=== PATIENT | male | born 1945 | race Caucasian/White ===

== ENCOUNTER → 2017-03-23 | Day surgery (SDC) | payer BC ==
[2017-03-19 08:37] VITALS: Ht 162.6 cm; Wt 61.4 kg
[~2017-03-23] VITALS: Ht 162.6 cm; Wt 61.4 kg
[~2017-03-23] MED LIST: EpHEDrine SULFATE 50MG/5ML SYR ONE; KRIL1000 PO; LIDOCAINE HCL 2% 2 ML VIAL (20MG/ML) ONE; MULT-506 PO; PROPOFOL IV EMULSION 10 MG/ML 20 ML VIAL IV ONE; SODIUM CHLORIDE 0.9% 500ML 500 ML IV ONE; vitamin b PO
[2017-03-23 08:36] VITALS: TEMP 36.4
--- NOTE | 2017-03-23 09:34 | Endo History and Physical ---
History & Physical Date of Service: Mar 23, 2017. Chief Complaint: Hx polyps Referring Physician: Sky Quinones History of Present Illness History of colitis, quiescent; history of multiple polyps Past Surgical History Hx Cardiac Surgery: No Hx Internal Defibrillator: No Hx Pacemaker: No Hx Abdominal Surgery: Yes (OSCAR) Hx of Implantable Prosthesis: No Hx Post-Op Nausea and Vomiting: No Hx Cancer Surgery: Yes (SKIN EXCISION, PROSTATECTOMY) Hx Thoracic Surgery: No Hx Orthopedic: No Hx Urinary Tract Surgery: Yes (VASECTOMY) Family History Colon CA Social History Smoking Status: Never Smoker Hx Substance Use: No Hx Alcohol Use: Yes (RARELY) Allergies Coded Allergies: POLLEN (Verified Allergy, Intermediate, HAYFEVER, 03/19/17) Penicillins (Verified Allergy, Intermediate, rash, 03/19/17) Sulfa Antibiotics (Verified Allergy, Intermediate, rash, 03/19/17) Current Medications Reported Home Medications Medications Dose Route/Sig Max Daily Dose Days Date Category Krill Oil 1 Cap Cap 1 Cap PO QAM 03/19/17 Reported [vitamin b] 1 Tab PO QAM 03/19/17 Reported Multivitamin (Multivitamins) Tab 1 Tab PO QAM 01/22/16 Reported Vital Signs Weight (Kilograms): 61.36 Height (Feet): 5 Height (Inches): 4 Date Time Temp Pulse Resp B/P (MAP) Pulse Ox O2 Delivery O2 Flow Rate FiO2 03/23/17 08:36 36.4 60 18 137/81 (99) 97 Room Air Physical Exam General Appearance: WD/WN, no apparent distress Respiratory/Chest: Auscultation: breath sounds normal Cardiovascular: Heart Auscultation: RRR, no murmurs Abdomen: Inspection & Palpation: soft, no tenderness, guarding & rebound Assessment and Plan Colonoscopy today.
--- NOTE | 2017-03-23 10:14 | Discharge Instructions ---
Endoscopy Patient Instructions Date / Procedure(s) Performed Mar 23, 2017. Colonoscopy Allergy Information Coded Allergies: POLLEN (Verified Allergy, Intermediate, HAYFEVER, 03/19/17) Penicillins (Verified Allergy, Intermediate, rash, 03/19/17) Sulfa Antibiotics (Verified Allergy, Intermediate, rash, 03/19/17) Discharge Date / Findings Mar 23, 2017. Mild inflammatory changes rectum to sigmoid, otherwise normal. Surveillance biopsies obtained. Medication Instructions Restart Stopped Medication(s): Restart all medications today Provider Instructions Activity Restrictions - No exercising or heavy lifting for 24 hours. - Do not drink alcohol the day of the procedure. - Do not drive a car or operate machinery until the day after the procedure. - Do not make any important decisions or sign important papers in 24 hours after the procedure. Following Day: - Return to full activity which may include returning to work/school. Diet Start your diet with liquids and light foods (jello, soup, juice, toast). Then eat your usual diet if not nauseated. Treatment For Common After Affects For mild abdominal pain, bloating, or excessive gas: - Rest - Eat lightly - Lie on right side Follow-Up Information Follow-up with Sky Quinones as scheduled Anesthesia Information What You Should Know You have had a procedure that required some medicine to reduce anxiety and discomfort. This treatment is called moderate sedation. After receiving the treatment, you may be sleepy, but you will be able to breathe on your own. The effects of the treatment may last for several hours. Follow these instructions along with Activity/Diet recommendations noted above: * Do NOT do anything where dizziness or clumsiness would be dangerous. * Rest quietly at home today, then you can be up and about tomorrow. * Have a responsible person stay with you the rest of today. * You may have had an I.V. today. If so, you may take the dressing off later today. Recommendations Call your doctor if: * Trouble breathing * Continuous vomiting for more than 24 hours * Temperature above 101 degrees * Severe abdominal pain or bloating * Pain not relieved by pain medicine ordered * There is increased drainage or redness from any incision * A large amount of rectal bleeding greater than 2-3 tablespoons. (If you had a polyp/s removed or have hemorrhoids, a small amount of blood - from the rectum is to be expected.) * You have any unanswered questions or concerns. IN THE EVENT OF A SERIOUS EMERGENCY, GO TO THE NEAREST EMERGENCY ROOM Your discharge instructions were prepared by provider North Chong. Patient Instructions Signature Page Adam Reddy Patient (or Guardian) Signature/Date: I have read and understand the instructions given to me by my caregivers. Caregiver/RN/Doctor Signature/Date: The above-named patient and/or guardian has received patient instructions on this date. + Original Patient Signature Page (only) stays with chart. Please make copy for patient.
--- NOTE | 2017-03-23 10:22 | GI REPORT ---
Procedure Date: 03/23/2017 9:38 AM Procedure: Colonoscopy Indications: High risk colon cancer surveillance: Personal history of colonic polyps, High risk colon cancer surveillance: Ulcerative colitis Medicines: Monitored Anesthesia Care Complications: No immediate complications. Estimated blood loss: None. Estimated Blood Loss: Estimated blood loss: none. Procedure: Pre-Anesthesia Assessment: - Prior to the procedure, a History and Physical was performed, and patient medications, allergies and sensitivities were reviewed. The patient's tolerance of previous anesthesia was reviewed. - ASA Grade Assessment: III - A patient with severe systemic disease. After I obtained informed consent, the scope was passed under direct vision. Throughout the procedure, the patient's blood pressure, pulse, and oxygen saturations were monitored continuously. The Scope was introduced through the anus and advanced to the terminal ileum, with identification of the appendiceal orifice and IC valve. The colonoscopy was performed with difficulty due to significant looping. Successful completion of the procedure was aided by changing the patient to a supine position. The patient tolerated the procedure well. The quality of the bowel preparation was good. The bowel preparation used was two day prep with split dose Miralax. Findings: Patchy mild inflammation characterized by erythema was found from rectum to sigmoid colon. Biopsies were taken with a cold forceps for histology. Normal mucosa was found from sigmoid to cecum. Two biopsies were taken every 10 cm with a cold forceps from the right colon and left colon for ulcerative colitis surveillance. These biopsy specimens from the right colon and left colon were sent to Pathology. Verification of patient identification for the specimens was done by the physician and nurse using the patient's name, date and medical record number. Impression: - Patchy mild inflammation was found from rectum to sigmoid colon. Biopsied. - Normal mucosa from sigmoid to cecum. Biopsied. Recommendation: - Repeat colonoscopy in 2 years for surveillance based on pathology results. - Discharge patient to home (with escort). North Chong M.D. North Chong MD 03/23/2017 10:22:07 AM This report has been signed electronically. Note Initiated On: 03/23/2017 9:38 AM I attest to the content of the Intraoperative Record and orders documented therein, exceptions below
[2017-03-23 10:48] VITALS: BP 107/67; PULSE 57; O2SAT 98
--- NOTE | 2017-03-23 10:52 | Anesthesiology Progress Note ---
Anesthesia Post Op Note Date & Time Mar 23, 2017 at 10:52 Vital Signs Pain Intensity: 0 Vital Signs Past 12 Hours Date Time Temp Pulse Resp B/P (MAP) Pulse Ox O2 Delivery O2 Flow Rate FiO2 03/23/17 10:48 57 18 107/67 (80) 98 Room Air 03/23/17 10:33 60 18 118/71 (87) 99 Room Air 03/23/17 10:18 70 16 101/60 (74) 97 Room Air 03/23/17 08:36 36.4 60 18 137/81 (99) 97 Room Air Notes Mental Status: alert / awake / arousable, participated in evaluation Pt Amnestic to Procedure: Yes Nausea / Vomiting: adequately controlled Pain: adequately controlled Airway Patency, RR, SpO2: stable & adequate BP & HR: stable & adequate Hydration State: stable & adequate Anesthetic Complications: no major complications apparent
== END | disposition home or self-care (01) ==
LOC: C.GI 08:15
PROVIDERS: ATTEND Internal Medicine Gastroenterology
DX: Z12.11 Encounter for screening for malignant neoplasm of colon (principal); K62.89 Other specified diseases of anus and rectum; Z86.010 Personal history of colon polyps; Z90.49 Acquired absence of other specified parts of digestive tract; Z90.79 Acquired absence of other genital organ(s); Z80.0 Family history of malignant neoplasm of digestive organs